=== PATIENT | female | born 1945 | race Caucasian/White ===

== ENCOUNTER 2022-03-13 20:16 | Observation (INO) ==
[2022-03-13] MEDS ORDERED: LORazepam 1 MG in SYRINGE 0.5 ML IV PRN (20:34)
[2022-03-13] MEDS ORDERED: HALOPERIDOL LACTATE 5 MG/ML 1 ML VIAL IM STA (20:34)
[2022-03-13] MEDS ORDERED: LORazepam 2 MG/1 ML VIAL ONE (20:40)
[2022-03-13] MEDS ORDERED: SODIUM CHLORIDE 0.9% 1000ML 1,000 ML IV SCH (20:45)
--- NOTE | 2022-03-13 20:51 | Emergency Department Note ---
Impression & Plan Altered mental status, Acute hyponatremia, Hypomagnesemia ED Provider Note NAME: MINO SHELDON AGE: 76 SEX: F : 1945 ARRIVES VIA: Ambulance INFORMANT: Patient, ED PROVIDER(S): Benjie Garvey DO CHIEF COMPLAINT: Altered mental status HPI: The patient is a 76-year-old female who presented to the emergency department by ambulance with an alteration in her mental status. It is unclear exactly what prompted the call to 911. There is a friend who did present to the emergency department with the patient who did call 911 at the patient's request although it is unclear why she called at this time. She states that the patient went to stand up and walk and stated that she could not walk and told the friend to call 911. At this time the patient offers no complaints but she is very combative and is guarded. She does not want to talk to me and keeps telling me to leave her alone and get her a drink of water. It is unclear what kind of history the patient has. She will not comply with history or physical exam at this time. History and physical exam are severely limited due to the patient's combative behavior. There was no reported trauma. There is no reported drug use but the patient reportedly did have an alcoholic beverage this evening. It is unclear how much alcohol she drank. ROS: See above HPI for pertinent positives & negatives. A total of 10 systems reviewed and were otherwise negative. PAST MEDICAL HISTORY: See Below PAST SURGICAL HISTORY: See Below FAMILY HISTORY: See Below SOCIAL HISTORY: See Below HOME MEDICATIONS: See Below ALLERGIES: See Below VITALS: See Below PHYSICAL EXAMINATION: GENERAL: The patient is awake and alert. She is very anxious and combative. EYES: The conjunctivae are clear. The pupils are round and reactive. EARS, NOSE, MOUTH AND THROAT: The nose is without any evidence of any deformity. NECK: The neck is nontender and supple. RESPIRATORY: Normal respiratory effort is noted there is no evidence of wheezing rhonchi or rales CARDIOVASCULAR: Regular rate and rhythm noted there no murmurs rubs or gallops normal S1 normal S2. GASTROINTESTINAL: The abdomen is soft. Abdomen is nontender. MUSCULOSKELETAL/EXTREMITIES: There is no evidence of gross deformity full range of motion is noted in the hips and shoulders. SKIN: There is no obvious evidence of any rash. There are no petechiae, pallor or cyanosis noted. NEUROLOGIC: The patient is awake and alert. She would not answer questions so I cannot assess orientation at this time but she does relate that she is in the emergency department. She is moving all extremities well. MEDICAL DECISION MAKING: Patient is a 76-year-old female who presented to the emergency department by ambulance. The patient initially did not want to come to the hospital. I received a prehospital notification about this patient. The patient ultimately was brought to the emergency department but she was very combative. She was not able to give a good history. She kept wanting to drink water and ultimately was found to have some degree of hyponatremia. It is possible that this is part of the reason why the patient is altered in her mentation however the sodium level would not explain it alone. She has no meningismus. She had no focal neur ologic deficit but was confused at times. I discussed patient's laboratory and radiographic studies with her. She was treated with IV fluids in the emergency department. She did require chemical sedation for the patient's own safety as well as safety of the staff. I discussed her condition with the on-call [facility] hospitalist. They have agreed to evaluate the patient in the emergency department. The patient was also treated with IV magnesium replacement. Triage Nursing notes reviewed. Prior medical records reviewed Vital Signs: reviewed and remarkable for low blood pressure. Differential diagnosis: Infection, hypoglycemia, electrolyte abnormalities, overdose, toxicologic, cardiac sources, intracerebral event, neurologic, trauma, as well as other pathologies. ER treatment provided: See below Diagnostics interpreted by me: ECG: EKG was obtained in the emergency department. My interpretation is normal sinus rhythm at 97 bpm. There is no ectopy. There is no acute ST segment abnormalities noted. No previous tracing was available. Cardiac Monitoring: An order was placed for continuous cardiac monitoring. The monitor shows a rate of 82 bpm with sinus rhythm. Laboratory studies: As stated above and show below. Imaging studies: See below Consultation(s): I discussed this case with Dr. Robin ED COURSE: Procedures: none Critical Care: I have personally spent greater than 40 minutes of critical care time in the direct management of this patient. This includes bedside care, interpretation of diagnostic studies, and testing, discussion with consultants, patient, and family members, and other required patient management activities. This 40 minutes is in excess of all separately billable procedures. Past Med/Surg History Social History Feels Safe at Home: Declines to Answer Results & Data (ED) Vital Signs Vital Signs - 24 hr 03/13/22 20:34 03/13/22 20:55 03/13/22 21:26 Pulse Rate 80 Pulse Rate [Finger] 89 Pulse Rhythm [Finger] Regular Pulse Strength [Finger] Normal Respiratory Rate 16 16 Respiratory Effort / Characteristics Non-Labored Spontaneous Respiratory Depth Normal Blood Pressure 172/114 H Blood Pressure [Right Arm] 118/67 Blood Pressure Mean 133 Blood Pressure Mean [Right Arm] 84 Blood Pressure Position Lying Blood Pressure Position [Right Arm] Sitting Pulse Oximetry 98 98 96 Oxygen Delivery Method Room Air Room Air Sepsis Recent Fever Within 48 Hours No Sepsis New/Unexplained Change in Mental Status Yes Sepsis Action Taken by Nursing No Action Required 03/13/22 22:10 03/13/22 23:29 03/14/22 00:02 Pulse Rate Pulse Rate [Finger] 89 89 82 Pulse Rhythm [Finger] Regular Pulse Strength [Finger] Normal Respiratory Rate 16 14 13 Respiratory Effort / Characteristics Spontaneous Non-Labored Spontaneous Respiratory Depth Normal Blood Pressure Blood Pressure [Right Arm] 140/72 78/44 L Blood Pressure Mean Blood Pressure Mean [Right Arm] 94 55 Blood Pressure Position Blood Pressure Position [Right Arm] Sitting Lying Pulse Oximetry 92 93 93 Oxygen Delivery Method Room Air Room Air Room Air Sepsis Recent Fever Within 48 Hours Sepsis New/Unexplained Change in Mental Status Sepsis Action Taken by Half-Way Medications Current Medication List: was personally reviewed by me Laboratory Data Attestation: I reviewed the patient's lab results. Result diagrams: 03/13/22 20:51 03/13/22 20:51 Lab Results 03/13/22 03/13/22 03/13/22 Range/Units 20:51 20:51 20:51 WBC (4.8-10.8) K/uL RBC (4.2-5.4) M/uL Hgb (12.0-16.0) g/dL Hct (37-47) % MCV (80-100) fL MCH (25-34) pg MCHC (32-36) g/dL RDW Std Deviation (36.4-46.3) fL RDW Coeff of Candi (11.5-14.5) % Plt Count (130-400) K/uL MPV (7.4-10.4) fL Immature Gran % (Auto) % Neut % (Auto) % Lymph % (Auto) % Platte % (Auto) % Eos % (Auto) % Baso % (Auto) % Neut # (Auto) (1.4-6.5) K/uL Lymph # (Auto) (1.2-3.4) K/uL Platte # (Auto) (0.11-0.59) K/uL Eos # (Auto) (0-0.5) K/uL Baso # (Auto) (0-0.2) K/uL Immature Gran # (Auto) (0.00-0.02) K/uL PT 12.4 H (9.0-12.0) Seconds INR 1.2 H (0.9-1.1) APTT 38.2 H (21.0-31.0) Seconds PTT Ratio 1.4 VBG pH (7.36-7.41) VBG pCO2 (38-50) mmHg VBG pO2 mmHg VBG HCO3 mmol/L VBG O2 Saturation % VBG Base Excess mEq/L Sodium 127 L (136-145) mmol/L Potassium 4.3 (3.5-5.1) mmol/L Chloride 94 L (98-107) mmol/L Carbon Dioxide 21 (21-32) mmol/L Anion Gap 12 H (3-11) BUN 11 (6-23) mg/dl Creatinine 0.88 (0.6-1.2) mg/dl Est Cr Clr Drug Dosing Not Reportable Est GFR ( Amer) 75.0 ml/min Est GFR (Non-Af Amer) 64.7 ml/min BUN/Creatinine Ratio 12.5 (10-20) Glucose 125 H (70-99(Fasting)) mg/dl POC Glucose (70-99) mg/dl Osmolality (280-300) mOsm/kg Calcium 9.6 (8.5-10.1) mg/dl Magnesium 1.2 L (1.7-2.4) mg/dl Total Bilirubin 0.4 (0.2-1.0) mg/dl AST 27 (13-39) U/L ALT 19 (7-52) U/L Alkaline Phosphatase 71 (34-104) U/L Total Creatine Kinase 104 (26-192) U/L Troponin I High Sens 7.3 (0-14) pg/ml Total Protein 7.2 (6.0-8.3) gm/dl Albumin 4.5 (3.4-5.0) gm/dl Globulin 2.7 (2.5-4.0) gm/dl Albumin/Globulin Ratio 1.7 (0.9-2) Lipase 78 (11-82) U/L Salicylates < 3.0 L (3.0-30) mg/dl Acetaminophen < 3 L (10-30) ug/ml Ethyl Alcohol mg/dL (<10.0) mg/dl SARS-CoV-2, RNA, NAAT (NEGATIVE) 03/13/22 03/13/22 03/13/22 Range/Units 20:51 20:51 20:51 WBC 11.67 H (4.8-10.8) K/uL RBC 3.33 L (4.2-5.4) M/uL Hgb 11.6 L (12.0-16.0) g/dL Hct 33.8 L (37-47) % MCV 101.5 H (80-100) fL MCH 34.8 H (25-34) pg MCHC 34.3 (32-36) g/dL RDW Std Deviation 43.9 (36.4-46.3) fL RDW Coeff of Candi 11.9 (11.5-14.5) % Plt Count 350 (130-400) K/uL MPV 9.8 (7.4-10.4) fL Immature Gran % (Auto) 0.2 % Neut % (Auto) 64.5 % Lymph % (Auto) 24.8 % Platte % (Auto) 9.8 % Eos % (Auto) 0.3 % Baso % (Auto) 0.4 % Neut # (Auto) 7.53 H (1.4-6.5) K/uL Lymph # (Auto) 2.89 (1.2-3.4) K/uL Platte # (Auto) 1.14 H (0.11-0.59) K/uL Eos # (Auto) 0.04 (0-0.5) K/uL Baso # (Auto) 0.05 (0-0.2) K/uL Immature Gran # (Auto) 0.02 (0.00-0.02) K/uL PT (9.0-12.0) Seconds INR (0.9-1.1) APTT (21.0-31.0) Seconds PTT Ratio VBG pH (7.36-7.41) VBG pCO2 (38-50) mmHg VBG pO2 mmHg VBG HCO3 mmol/L VBG O2 Saturation % VBG Base Excess mEq/L Sodium (136-145) mmol/L Potassium (3.5-5.1) mmol/L Chloride (98-107) mmol/L Carbon Dioxide (21-32) mmol/L Anion Gap (3-11) BUN (6-23) mg/dl Creatinine (0.6-1.2) mg/dl Est Cr Clr Drug Dosing Est GFR ( Amer) ml/min Est GFR (Non-Af Amer) ml/min BUN/Creatinine Ratio (10-20) Glucose (70-99(Fasting)) mg/dl POC Glucose (70-99) mg/dl Osmolality 286 (280-300) mOsm/kg Calcium (8.5-10.1) mg/dl Magnesium (1.7-2.4) mg/dl Total Bilirubin (0.2-1.0) mg/dl AST (13-39) U/L ALT (7-52) U/L Alkaline Phosphatase (34-104) U/L Total Creatine Kinase (26-192) U/L Troponin I High Sens (0-14) pg/ml Total Protein (6.0-8.3) gm/dl Albumin (3.4-5.0) gm/dl Globulin (2.5-4.0) gm/dl Albumin/Globulin Ratio (0.9-2) Lipase (11-82) U/L Salicylates (3.0-30) mg/dl Acetaminophen (10-30) ug/ml Ethyl Alcohol mg/dL 63.7 H (<10.0) mg/dl SARS-CoV-2, RNA, NAAT (NEGATIVE) 03/13/22 03/13/22 03/13/22 Range/Units 20:51 21:03 21:22 WBC (4.8-10.8) K/uL RBC (4.2-5.4) M/uL Hgb (12.0-16.0) g/dL Hct (37-47) % MCV (80-100) fL MCH (25-34) pg MCHC (32-36) g/dL RDW Std Deviation (36.4-46.3) fL RDW Coeff of Candi (11.5-14.5) % Plt Count (130-400) K/uL MPV (7.4-10.4) fL Immature Gran % (Auto) % Neut % (Auto) % Lymph % (Auto) % Platte % (Auto) % Eos % (Auto) % Baso % (Auto) % Neut # (Auto) (1.4-6.5) K/uL Lymph # (Auto) (1.2-3.4) K/uL Platte # (Auto) (0.11-0.59) K/uL Eos # (Auto) (0-0.5) K/uL Baso # (Auto) (0-0.2) K/uL Immature Gran # (Auto) (0.00-0.02) K/uL PT (9.0-12.0) Seconds INR (0.9-1.1) APTT (21.0-31.0) Seconds PTT Ratio VBG pH 7.35 L (7.36-7.41) VBG pCO2 43 (38-50) mmHg VBG pO2 33 mmHg VBG HCO3 24 mmol/L VBG O2 Saturation < 60.0 % VBG Base Excess -2.0 mEq/L Sodium (136-145) mmol/L Potassium (3.5-5.1) mmol/L Chloride (98-107) mmol/L Carbon Dioxide (21-32) mmol/L Anion Gap (3-11) BUN (6-23) mg/dl Creatinine (0.6-1.2) mg/dl Est Cr Clr Drug Dosing Est GFR ( Amer) ml/min Est GFR (Non-Af Amer) ml/min BUN/Creatinine Ratio (10-20) Glucose (70-99(Fasting)) mg/dl POC Glucose 124 H (70-99) mg/dl Osmolality (280-300) mOsm/kg Calcium (8.5-10.1) mg/dl Magnesium (1.7-2.4) mg/dl Total Bilirubin (0.2-1.0) mg/dl AST (13-39) U/L ALT (7-52) U/L Alkaline Phosphatase (34-104) U/L Total Creatine Kinase (26-192) U/L Troponin I High Sens (0-14) pg/ml Total Protein (6.0-8.3) gm/dl Albumin (3.4-5.0) gm/dl Globulin (2.5-4.0) gm/dl Albumin/Globulin Ratio (0.9-2) Lipase (11-82) U/L Salicylates (3.0-30) mg/dl Acetaminophen (10-30) ug/ml Ethyl Alcohol mg/dL (<10.0) mg/dl SARS-CoV-2, RNA, NAAT NEGATIVE (NEGATIVE) Administered Medications Sodium Chloride (Nss 1000ml) 1,000 mls @ 999 mls/hr IV .Q1H1M ONE Stop: 03/14/22 01:08 Last Admin: 03/14/22 00:09 Dose: 999 mls/hr Documented by: [id number] Discontinued Medications Haloperidol Lactate (Haloperidol Lactate 5 Mg/Ml 1 Ml Vial) 5 mg IM NOW STA Stop: 03/13/22 20:35 Last Admin: 03/13/22 20:50 Dose: 5 mg Documented by: [id number] Sodium Chloride (Nss 1000ml) 1,000 mls @ 999 mls/hr IV .Q1H1M MILDRED Stop: 03/13/22 21:45 Last Infusion: 03/13/22 23:05 Dose: 0 mls/hr Documented by: [id number] Admin: 03/13/22 21:32 Dose: 999 mls/hr Documented by: [id number] Magnesium Sulfate/Dextrose (Magnesium Sulfate / D5w) 1 gm in 100 mls @ 100 mls/hr IV Q1H MILDRED Stop: 03/13/22 23:37 Last Infusion: 03/14/22 00:09 Dose: 0 mls/hr Documented by: [id number] Admin: 03/13/22 23:04 Dose: 100 mls/hr Documented by: [id number] Infusion: 03/13/22 23:03 Dose: 0 mls/hr Documented by: [id number] Admin: 03/13/22 21:53 Dose: 100 mls/hr Documented by: [id number] Lorazepam (Lorazepam 2 Mg/1 Ml Vial) Confirm Administered Dose 1 mg .ROUTE .STK- MED ONE Stop: 03/13/22 20:41 Last Admin: 03/13/22 20:50 Dose: 1 mg Documented by: [id number] Imaging Data Radiologist's Impression: Chest X-Ray 03/13/22 20:34 XR chest 1V portable HISTORY: 76 years-old Female AMS acutely altered mental status COMPARISON: None TECHNIQUE: Portable AP view of the chest FINDINGS: Cardiac silhouette is mildly enlarged. No pneumothorax, pleural effusion, airspace consolidation or overt pulmonary edema. Sigmoidal thoracolumbar scoli osis. The bones appear grossly intact. IMPRESSION: No acute process. ACT 112: Negative or not required by law. The above report was generated using voice recognition software. It may contain grammatical, syntax or spelling errors. Electronically signed by: Adal Quiroga M.D. 03/13/2022 9:[address] 03/13/22 20:35 CT head/brain wo con CLINICAL HISTORY: 76 years-old Female with AMS. Acutely altered mental status TECHNIQUE: Multiple axial CT images of the head were obtained without contrast. A dose lowering technique was utilized adhering to the principles of ALARA. CT DOSE: 1228.53 mGy.cm COMPARISON: None. FINDINGS: No acute intracranial hemorrhage, midline shift, intracranial mass, hydrocephalus, territorial ischemia or abnormal extra-axial collection. White matter hypodensities are suggestive of chronic microvascular ischemic disease. Calcifications of the falx cerebri. Study is limited secondary to positioning and mild motion artifact. The calvarium is intact. The paranasal sinuses, mastoid air cells, and middle ear cavities are clear. IMPRESSION: No acute intracranial abnormality. ACT 112: Negative or not required by law. The above report was generated using voice recognition software. It may contain grammatical, syntax or spelling errors. Electronically signed by: Adal Quiroga M.D. 03/13/2022 9:50 PM Discharge Plan Visit Data Chief Complaint: Altered Mental Status Stated Complaint: ALTERED MENTAL STATUS ED Provider: Benjie Garvey Discharge Problem: Altered mental status, Acute hyponatremia, Hypomagnesemia Patient Disposition: Being Evaluated by Hospitalist Forms Stand Alone Forms: [facility] Referrals Referrals: PCP,NO [Primary Care Provider] -
[2022-03-13 21:03] LABS: HCO3 VBG 24 mmol/L; Oxygen Saturation VBG < 60.0 %; PCO2 VBG 43 mmHg (38-50); PO2 VBG 33 mmHg; pH VBG 7.35 (7.36-7.41)
[2022-03-13 21:10] LABS: Basophils # (auto) 0.05 K/uL (0-0.2); Basophils % (auto) 0.4 %; Eosinophils # (auto) 0.04 K/uL (0-0.5); Eosinophils % (auto) 0.3 %; Hematocrit (blood only) 33.8 % (37-47); Hemoglobin 11.6 g/dL (12.0-16.0); Immature Granulocytes # (auto) 0.02 K/uL (0.00-0.02); Immature Granulocytes % (auto) 0.2 %; Lymphocytes # (auto) 2.89 K/uL (1.2-3.4); Lymphocytes % (auto) 24.8 %; Mean Corpuscular Hemoglobin 34.8 pg (25-34); Mean Corpuscular Hgb Conc 34.3 g/dL (32-36); Mean Corpuscular Volume 101.5 fL (80-100); Mean Platelet Volume 9.8 fL (7.4-10.4); Monocytes # (auto) 1.14 K/uL (0.11-0.59); Monocytes % (auto) 9.8 %; Neutrophils # (auto) 7.53 K/uL (1.4-6.5); Neutrophils % (auto) 64.5 %; Platelet Count 350 K/uL (130-400); RDW Coefficient of Variation 11.9 % (11.5-14.5); RDW Standard Deviation 43.9 fL (36.4-46.3); Red Blood Count 3.33 M/uL (4.2-5.4); White Blood Count 11.67 K/uL (4.8-10.8)
[2022-03-13 21:18] LABS: INR 1.2 (0.9-1.1); Partial Thromboplastin Ratio 1.4; Partial Thromboplastin Time 38.2 Seconds (21.0-31.0); Prothrombin Time 12.4 Seconds (9.0-12.0)
[2022-03-13 21:23] LABS: Acetaminophen < 3 ug/ml (10-30); Salicylate < 3.0 mg/dl (3.0-30)
[2022-03-13 21:29] LABS: Alanine Aminotransferase 19 U/L (7-52); Albumin Globulin Ratio 1.7 (0.9-2); Albumin Level 4.5 gm/dl (3.4-5.0); Alkaline Phosphatase 71 U/L (34-104); Anion Gap 12 (3-11); Aspartate Aminotransferase 27 U/L (13-39); BUN Creatinine Ratio 12.5 (10-20); Bilirubin,Total 0.4 mg/dl (0.2-1.0); Blood Urea Nitrogen 11 mg/dl (6-23); Calcium 9.6 mg/dl (8.5-10.1); Carbon Dioxide 21 mmol/L (21-32); Chloride 94 mmol/L (98-107); Creatine Kinase 104 U/L (26-192); Est GFR (Non-African American) 64.7 ml/min; Globulin 2.7 gm/dl (2.5-4.0); Glucose 125 mg/dl (70-99(Fasting)); Lipase 78 U/L (11-82); Magnesium 1.2 mg/dl (1.7-2.4); Potassium 4.3 mmol/L (3.5-5.1); Sodium 127 mmol/L (136-145); Total Protein 7.2 gm/dl (6.0-8.3)
[2022-03-13 21:30] LABS: Troponin I High Sensitivity 7.3 pg/ml (0-14)
--- NOTE | 2022-03-13 21:39 | XRay Report ---
XR chest 1V portable HISTORY: 76 years-old Female AMS acutely altered mental status COMPARISON: None TECHNIQUE: Portable AP view of the chest FINDINGS: Cardiac silhouette is mildly enlarged. No pneumothorax, pleural effusion, airspace consolidation or o vert pulmonary edema. Sigmoidal thoracolumbar scoliosis. The bones appear grossly intact. IMPRESSION: No acute process. ACT 112: Negative or not required by law. The above report was generated using voice recognition software. It may contain grammatical, syntax o r spelling errors. Electronically signed by: Adal Quiroga M.D. 03/13/2022 9:38 PM
--- NOTE | 2022-03-13 21:51 | CT Scan Report ---
CT head/brain wo con CLINICAL HISTORY: 76 years-old Female with AMS. Acutely altered mental status TECHNIQUE: Multiple axial CT images of the head were obtained without contrast. A dose lowering tech nique was utilized adhering to the principles of ALARA. CT DOSE: 1228.53 mGy.cm COMPARISON: None. FINDINGS: No acute intracranial hemorrhage, midline shift, intracranial mass, hydrocephalus, territorial ischem ia or abnormal extra-axial collection. White matter hypodensities are suggestive of chronic microvasc ular ischemic disease. Calcifications of the falx cerebri. Study is limited secondary to positioning and mild motion artifact. The calvarium is intact. The paranasal sinuses, mastoid air cells, and middle ear cavities are clear . IMPRESSION: No acute intracranial abnormality. ACT 112: Negative or not required by law. The above report was generated using voice recognition software. It may contain grammatical, syntax o r spelling errors. Electronically signed by: Adal Quiroga M.D. 03/13/2022 9:50 PM
[2022-03-13] MEDS: MAGNESIUM SULFATE / D5W 1 GM/100 ML BAG IV SCH ×2 (21:53→23:04)
[2022-03-14] MEDS ORDERED: SODIUM CHLORIDE 0.9% 1000ML 1,000 ML IV ONE (00:08)
[2022-03-14] MEDS ORDERED: THIAMINE HCL 100 MG in SYRINGE 9 ML IV STA (00:34)
[2022-03-14] MEDS ORDERED: MAGNESIUM SULFATE / D5W 1 GM/100 ML BAG IV ONE (00:34)
--- NOTE | 2022-03-14 01:22 | History & Physical Report ---
Date of Service March 14, 2022 Assessment & Plan (1) Acute hyponatremia: Plan: Possible alcohol abuse hx atrial flutter, patient NSR, on Eliquis hypertension, slightly elevated hx TIA New onset anemia, rule out GI bleed given NOAC use, patient refusing rectal exam Hyperglycemia rule out DM Medical telemetry Careful correction of sodium Hyponatremia work-up AIXA S, DT precautions May need nephrology consultation Obtain additional history from patient when more awake Anemia work-up, transfuse PRBC if hemoglobin less than 8 and or for symptomatic anemia Hold NOAC for now until GI bleed ruled out Check urine tox Check hemoglobin A1c DVT prophylaxis. SCDs until occult GI bleed ruled out Full code Patient requesting updates from providers. Mr. Rahul Spiceriott, contact #[phone]. Text document was generated using [employer] voice recognition software. It may contain grammatical or spelling errors. Kindly contact undersigned for clarification of any documentation item in question. History of Present Illness Chief Complaint: Confusion as per records Primary Care Provider: Dr. Bethany Munoz History obtained from patient, family, and records. Limited history from patient secondary to obtunded state. Medical history significant for atrial flutter, hypertension, TIA, possible alcohol abuse, possible BRITTNY as per records, past tobacco abuse. Patient was at a green party with a friend visiting out of state when patient was noted to be confused and staring off into the distance. Patient had 2 beers and some marijuana as per friend account. As per patient (currently in [place]) patient currently overwhelmed by issues with her computer and politics. Can drink alcohol heavily from time to time. Patient noted to be agitated upon arrival at the ER. Lorazepam and Haldol administered. Patient currently obtunded. Medical History as above Surgical History : DL, neck surgery, tonsillectomy/adenoidectomy Family History : Heart disease, lung cancer, stroke Personal/Social history : Past tobacco abuse, alcohol intake occasionally heavy as per Allergies Allergy/AdvReac Type Severity Reaction Status Date / Time Unable to Assess Allergy Verified 03/14/22 01:30 Home Medications Medication Instructions Recorded Confirmed Type atenolol 100 mg tablet 100 mg PO DAILY 03/14/22 03/14/22 History atorvastatin 40 mg tablet 40 mg PO DAILY 03/14/22 03/14/22 History lisinopril 20 mg tablet 20 mg PO DAILY 03/14/22 03/14/22 History rivaroxaban 20 mg tablet (Xarelto) 20 mg PO DAILY 03/14/22 03/14/22 History spironolactone 25 mg tablet 25 mg PO DAILY 03/14/22 03/14/22 History Past Med/Surg History Social History Preferred Language: Burmese Communication Ability: Impaired Warm In Worker Required: No Current Living Situation Comment: unknown Feels Safe at Home: Declines to Answer Review of Systems Review of Systems: Could not be reliably obtained secondary to obtunded state Physical Exam Physical Exam: GENERAL: Obtunded , no respiratory distress SKIN: Normal color, warm HEENT: Bespectacled, [place] palpebral conjunctivae, no ptosis, dry buccal mucosa NECK : Supple, no tenderness CHEST : CTA, no tenderness HEART : RRR, no obvious murmurs ABDOMEN: Some distention, nontender RECTAL : Refused EXTREMITIES : No LE swelling/tenderness, no other conspicuous deformities noted NEUROLOGIC : Obtunded, no facial asymmetry, no other gross focality Results & Data Results & Data ([facility]) Vital Signs (Past 12 Hours) Vital Signs Pulse Pulse Resp BP BP Pulse Ox 03/14/22 01:04 78 12 97/54 L 95 03/14/22 00:30 87 103/62 93 03/14/22 00:02 82 13 78/44 L 93 03/13/22 23:29 89 14 93 03/13/22 22:10 89 16 140/72 92 03/13/22 21:26 89 16 118/67 96 03/13/22 20:55 98 03/13/22 20:34 80 16 172/114 H 98 Laboratory Results Laboratory Results WBC 11.67 K/uL (4.8-10.8) H 03/13/22 20:51 RBC 3.33 M/uL (4.2-5.4) L 03/13/22 20:51 Hgb 11.6 g/dL (12.0-16.0) L 03/13/22 20:51 Hct 33.8 % (37-47) L 03/13/22 20:51 MCV 101.5 fL (80-100) H 03/13/22 20:51 MCH 34.8 pg (25-34) H 03/13/22 20:51 MCHC 34.3 g/dL (32-36) 03/13/22 20: RDW Std Deviation 43.9 fL (36.4-46.3) 03/13/22 20: RDW Coeff of Candi 11.9 % (11.5-14.5) 03/13/22 20: Plt Count 350 K/uL (130-400) 03/13/22 20: MPV 9.8 fL (7.4-10.4) 03/13/22 20:51 Immature Gran % (Auto) 0.2 % 03/13/22 20:51 Neut % (Auto) 64.5 % 03/13/22 20:51 Lymph % (Auto) 24.8 % 03/13/22 20: [place] % (Auto) 9.8 % 03/13/22 20: Eos % (Auto) 0.3 % 03/13/22 20: Baso % (Auto) 0.4 % 03/13/22: Neut # (Auto) 7.53 K/uL (1.4-6.5) H 03/13/22 20:51 Lymph # (Auto) 2.89 K/uL (1.2-3.4) 03/13/22 20: [place] # (Auto) 1.14 K/uL (0.11-0.59) H 03/13/22 20:51 Eos # (Auto) 0.04 K/uL (0-0.5) 03/13/22 20: Baso # (Auto) 0.05 K/uL (0-0.2) 03/13/22 20: Immature Gran # (Auto) 0.02 K/uL (0.00-0.02) 03/13/22 20: PT 12.4 Seconds (9.0-12.0) H 03/13/22 20:51 INR 1.2 (0.9-1.1) H 03/13/22 20:51 APTT 38.2 Seconds (21.0-31.0) H 03/13/22 20:51 PTT Ratio 1.4 03/13/22 20: VBG pH 7.35 (7.36-7.41) L 03/13/22 20:51 VBG pCO2 43 mmHg (38-50) 03/13/22 20:51 VBG pO2 33 mmHg 03/13/22 20:51 VBG HCO3 24 mmol/L 03/13/22 20:51 VBG O2 Saturation < 60.0 % 03/13/22 20:51 VBG Base Excess -2.0 mEq/L 03/13/22 20:51 Sodium 127 mmol/L (136-145) L 03/13/22 20:51 Potassium 4.3 mmol/L (3.5-5.1) 03/13/22 20:51 Chloride 94 mmol/L (98-107) L 03/13/22 20:51 Carbon Dioxide 21 mmol/L (21-32) 03/13/22 20:51 Anion Gap 12 (3-11) H 03/13/22 20:51 BUN 11 mg/dl (6-23) 03/13/22 20:51 Creatinine 0.88 mg/dl (0.6-1.2) 03/13/22 20:51 Est Cr Clr Drug Dosing Not Reportable 03/13/22 20:51 Est GFR ( Amer) 75.0 ml/min 03/13/22 20:51 Est GFR (Non-Af Amer) 64.7 ml/min 03/13/22 20:51 BUN/Creatinine Ratio 12.5 (10-20) 03/13/22 20:51 Glucose 125 mg/dl (70-99(Fasting)) H 03/13/22 20:51 POC Glucose 124 mg/dl (70-99) H 03/13/22 21:03 Osmolality 286 mOsm/kg (280-300) 03/13/22 20:51 Calcium 9.6 mg/dl (8.5-10.1) 03/13/22 20:51 Magnesium 1.2 mg/dl (1.7-2.4) L 03/13/22 20:51 Total Bilirubin 0.4 mg/dl (0.2-1.0) 03/13/22 20:51 AST 27 U/L (13-39) 03/13/22 20:51 ALT 19 U/L (7-52) 03/13/22 20:51 Alkaline Phosphatase 71 U/L (34-104) 03/13/22 20:51 Total Creatine Kinase 104 U/L (26-192) 03/13/22 20:51 Troponin I High Sens 7.3 pg/ml (0-14) 03/13/22 20:51 Total Protein 7.2 gm/dl (6.0-8.3) 03/13/22 20:51 Albumin 4.5 gm/dl (3.4-5.0) 03/13/22 20:51 Globulin 2.7 gm/dl (2.5-4.0) 03/13/22 20:51 Albumin/Globulin Ratio 1.7 (0.9-2) 03/13/22 20:51 Lipase 78 U/L (11-82) 03/13/22 20:51 Salicylates < 3.0 mg/dl (3.0-30) L 03/13/22 20:51 Acetaminophen < 3 ug/ml (10-30) L 03/13/22 20:51 Ethyl Alcohol mg/dL 63.7 mg/dl (<10.0) H 03/13/22 20:51 SARS-CoV-2, RNA, NAAT NEGATIVE (NEGATIVE) 03/13/22 21:22 Impressions Chest X-Ray 03/13/22 20:34 XR chest 1V portable HISTORY: 76 years-old Female AMS acutely altered mental status COMPARISON: None TECHNIQUE: Portable AP view of the chest FINDINGS: Cardiac silhouette is mildly enlarged. No pneumothorax, pleural effusion, airspace consolidation or overt pulmonary edema. Sigmoidal thoracolumbar scoliosis. The bones appear grossly intact. IMPRESSION: No acute process. ACT 112: Negative or not required by law. The above report was generated using voice recognition software. It may contain grammatical, syntax or spelling errors. Electronically signed by: Adal Quiroga M.D. 03/13/2022 9:[address] 03/13/22 20:35 CT head/brain wo con CLINICAL HISTORY: 76 years-old Female with AMS. Acutely altered mental status TECHNIQUE: Multiple axial CT images of the head were obtained without contrast. A dose lowering technique was utilized adhering to the principles of ALARA. CT DOSE: 1228.53 mGy.cm COMPARISON: None. FINDINGS: No acute intracranial hemorrhage, midline shift, intracranial mass, hydrocephalus, territorial ischemia or abnormal extra-axial collection. White matter hypodensities are suggestive of chronic microvascular ischemic disease. Calcifications of the falx cerebri. Study is limited secondary to positioning and mild motion artifact. The calvarium is intact. The paranasal sinuses, mastoid air cells, and middle ear cavities are clear. IMPRESSION: No acute intracranial abnormality. ACT 112: Negative or not required by law. The above report was generated using voice recognition software. It may contain grammatical, syntax or spelling errors. Electronically signed by: Adal Quiroga M.D. 03/13/2022 9:50 PM Diagnostic Findings EKG as per my interpretation: Rate 95, NSR, normal axis, no ischemia, low voltage
[2022-03-14] MEDS ORDERED: ACETAMINOPHEN 325 MG TAB PO PRN (02:21)
[2022-03-14] MEDS ORDERED: LORazepam 2 MG in SYRINGE 1 ML IV PRN (02:31)
[2022-03-14] MEDS ORDERED: LORazepam 1 MG in SYRINGE 0.5 ML IV PRN (02:31)
[2022-03-14] MEDS ORDERED: LORazepam 3 MG in SYRINGE 1.5 ML IV PRN (02:31)
[2022-03-14] MEDS ORDERED: ATIVAN IV ALCOHOL WITHDRAWL IV PRN (02:31)
[2022-03-14 03:13] LABS: Reticulocyte % 0.8 % (0.5-2.0); Reticulocytes # 0.02 10^6/uL (0.02-0.10)
[2022-03-14 04:38] LABS: Ferritin 147.1 ng/ml (8-388)
[2022-03-14 05:37] LABS: Basophils # (auto) 0.03 K/uL (0-0.2); Basophils % (auto) 0.3 %; Eosinophils # (auto) 0.03 K/uL (0-0.5); Eosinophils % (auto) 0.3 %; Hematocrit (blood only) 30.3 % (37-47); Hemoglobin 10.6 g/dL (12.0-16.0); Immature Granulocytes # (auto) 0.02 K/uL (0.00-0.02); Immature Granulocytes % (auto) 0.2 %; Lymphocytes # (auto) 3.21 K/uL (1.2-3.4); Mean Corpuscular Hemoglobin 35.8 pg (25-34); Mean Corpuscular Volume 102.4 fL (80-100); Mean Platelet Volume 9.7 fL (7.4-10.4); Monocytes # (auto) 1.21 K/uL (0.11-0.59); Monocytes % (auto) 12.8 %; Neutrophils # (auto) 4.94 K/uL (1.4-6.5); Neutrophils % (auto) 52.4 %; Platelet Count 314 K/uL (130-400); RDW Coefficient of Variation 11.5 % (11.5-14.5); RDW Standard Deviation 43.4 fL (36.4-46.3); Red Blood Count 2.96 M/uL (4.2-5.4); White Blood Count 9.44 K/uL (4.8-10.8)
[2022-03-14 06:26] LABS: Carbon Dioxide 24 mmol/L (21-32); Chloride 102 mmol/L (98-107); Sodium 129 mmol/L (136-145)
[2022-03-14 06:27] LABS: Anion Gap 3 (3-11); BUN Creatinine Ratio 12.5 (10-20); Blood Urea Nitrogen 9 mg/dl (6-23); Calcium 8.4 mg/dl (8.5-10.1); Est GFR (African American) 95.6 ml/min; Est GFR (Non-African American) 82.5 ml/min; Glucose 100 mg/dl (70-99(Fasting)); Magnesium 2.5 mg/dl (1.7-2.4)
[2022-03-14] MEDS ORDERED: lisinopril 20 MG TAB PO SCH (09:00)
[2022-03-14] MEDS ORDERED: ATORVASTATIN 40 MG TAB PO SCH (09:00)
[2022-03-14] MEDS ORDERED: FOLIC ACID 1 MG TAB PO SCH (09:00)
[2022-03-14] MEDS ORDERED: MULTIVITAMIN TAB PO SCH (09:00)
[2022-03-14] MEDS ORDERED: ATENOLOL 50 MG TABLET PO SCH (09:00)
[2022-03-14 13:20] LABS: Anion Gap 5 (3-11); BUN Creatinine Ratio 10.1 (10-20); Blood Urea Nitrogen 8 mg/dl (6-23); Calcium 8.9 mg/dl (8.5-10.1); Carbon Dioxide 25 mmol/L (21-32); Chloride 101 mmol/L (98-107); Est GFR (African American) 85.5 ml/min; Est GFR (Non-African American) 73.7 ml/min; Glucose 148 mg/dl (70-99(Fasting)); Potassium 4.1 mmol/L (3.5-5.1); Sodium 131 mmol/L (136-145)
--- NOTE | 2022-03-14 18:27 | Hospitalist Progress Note ---
Date of Service March 14, 2022 Assessment & Plan (1) Acute hyponatremia: Plan: ALTERED MENTAL STATUS LIKELY SECONDARY TO ALCOHOL INTOXICATION, MARIJUANA Patient now awake, alert, oriented x3 Reports that she is back to her baseline Answers all questions appropriately CT head: No acute process Sodium level improved from 27- 31 Patient would like to be discharged home and follow-up with her PCP Coordinated with psychiatry service, inpatient psychiatry treatment not indicated at this time, 302 petition will be removed Patient advised against alcohol use, substance use and she verbalized understanding and agreement Advised to follow-up with primary care physician within this week for reevaluation and repeat sodium and magnesium levels Patient gave me permission to speak with her and share medical information with him as well as her primary care physician Dr. Bethany Harrison's. MILD ANEMIA SECONDARY TO FOLIC ACID DEFICIENCY Hemoglobin 11 Folate acid supplement ordered Repeat CBC and folate acid level as an outpatient HYPOMAGNESEMIA LIKELY SECONDARY TO ALCOHOL USE presented with magnesium of 1.4 Given IV magnesium Magnesium improved to 2.5 P.o. magnesium prescribed for the patient Follow-up as an outpatient with PCP hx atrial flutter, patient NSR, on Eliquis hypertension, resume usual medications hx TIA New onset anemia, rule out GI bleed given NOAC use, patient refusing rectal exam Hyperglycemia rule out DM -- A1c pending plan of care discussed with patient in detail and at length all questions answered She is understanding, agreeable, comfortable with the plan of care Admission and Anticipated Discharge Date Admission Date: March 14, 2022 Subjective Follow-up for altered mental status, etc. Seen resting in bed, sleeping but easily awakened Oriented x3, answers all questions appropriately Patient somewhat irritable States she feels fine Denies headache, dizziness, chest pain, shortness of breath, cough, palpitations, abdominal pain, nausea or vomiting, problems with urination or bowel movement Patient reports that she was in a friend's house, admits to have been drinking alcohol, and also friends made her smoke "something" Afterwards, she did not feel right, and wanted to be driven home but her friends did not want to do that apparently 911 was then called and patient brought to the ER Patient denies any symptoms States she feels back to her baseline Would like to be discharged today Review of Systems Review of Systems: all noted and negative except for above Physical Exam Physical Exam: General- oriented x 3, not in distress, speaks in sentences with no effort or accessory muscle use Head- atraumatic Eyes- PERRL, EOMI, anicteric ENT- oropharynx clear Neck- supple, no JVD, no adenopathy, no thyromegaly; carotids +2/2, no bruits appreciated Lungs- clear to auscultation bilaterally, no rales/wheezes Heart- normal rate, regular rhythm; no murmur, no gallop, no rub appreciated Abdomen- normal bowel sounds, nondistended, soft, nontender, no masses or hepatosplenomegaly Extremities- no pretibial edema, no calf tenderness; peripheral pulses intact Neuro- alert, oriented x 3; CN 2-12 grossly intact; motor 5/5 bilaterally;sensation 100% on all extremities; no other gross focal neurologic deficits Skin- warm & dry Psych- calm, cooperative Results & Data Results & Data ([facility]) Vital Signs (Past 12 Hours) Vital Signs Pulse Resp BP Pulse Ox 03/14/22 09:01 69 16 132/71 98 03/14/22 08:00 69 16 164/77 H 100 03/14/22 07:16 77 18 140/75 98 all noted and reviewed including below
--- NOTE | 2022-03-14 18:27 | Discharge Summary ---
Date of Service March 14, 2022 Admission HPI Per Admitting Provider History obtained from patient, family, and records. Limited history from patient secondary to obtunded state. Medical history significant for atrial flutter, hypertension, TIA, possible alcohol abuse, possible BRITTNY as per records, past tobacco abuse. Patient was at a democrat with a friend visiting out of state when patient was noted to be confused and staring off into the distance. Patient had 2 beers and some marijuana as per friend account. As per patient (currently in [place]) patient currently overwhelmed by issues with her computer and politics. Can drink alcohol heavily from time to time. Patient noted to be agitated upon arrival at the ER. Lorazepam and Haldol administered. Patient currently obtunded. Medical History as above Surgical History : DL, neck surgery, tonsillectomy/adenoidectomy Family History : Heart disease, lung cancer, stroke Personal/Social history : Past tobacco abuse, alcohol intake occasionally heavy as per Admission Exam Per Admitting Provider GENERAL: Obtunded , no respiratory distress SKIN: Normal color, warm HEENT: Bespectacled, [place] palpebral conjunctivae, no ptosis, dry buccal mucosa NECK : Supple, no tenderness CHEST : CTA, no tenderness HEART : RRR, no obvious murmurs ABDOMEN: Some distention, nontender RECTAL : Refused EXTREMITIES : No LE swelling/tenderness, no other conspicuous deformities noted NEUROLOGIC : Obtunded, no facial asymmetry, no other gross focality Principal Diagnosis Altered mental status likely secondary to alcohol intoxication, marijuana Hyponatremia Discharge Exam General- oriented x 3, not in distress, speaks in sentences with no effort or accessory muscle use Head- atraumatic Eyes- PERRL, EOMI, anicteric ENT- oropharynx clear Neck- supple, no JVD, no adenopathy, no thyromegaly; carotids +2/2, no bruits appreciated Lungs- clear to auscultation bilaterally, no rales/wheezes Heart- normal rate, regular rhythm; no murmur, no gallop, no rub appreciated Abdomen- normal bowel sounds, nondistended, soft, nontender, no masses or hepatosplenomegaly Extremities- no pretibial edema, no calf tenderness; peripheral pulses intact Neuro- alert, oriented x 3; CN 2-12 grossly intact; motor 5/5 bilaterally;sensation 100% on all extremities; no other gross focal neurologic deficits Skin- warm & dry Psych- calm, cooperative Discharge Data Allergies Allergy/AdvReac Type Severity Reaction Status Date / Time Unable to Assess Allergy Verified 03/14/22 01:30 Consultations 03/14/22 00:08 ED Decision to Admit Stat 03/14/22 15:45 Consult Psychiatry Routine Ordered Studies 03/13/22 20:35 CT head/brain wo con Stat CT head/brain wo con CLINICAL HISTORY: 76 years-old Female with AMS. Acutely altered mental status TECHNIQUE: Multiple axial CT images of the head were obtained without contrast. A dose lowering technique was utilized adhering to the principles of ALARA. CT DOSE: 1228.53 mGy.cm COMPARISON: None. FINDINGS: No acute intracranial hemorrhage, midline shift, intracranial mass, hydrocephalus, territorial ischemia or abnormal extra-axial collection. White matter hypodensities are suggestive of chronic microvascular ischemic disease. Calcifications of the falx cerebri. Study is limited secondary to positioning and mild motion artifact. The calvarium is intact. The paranasal sinuses, mastoid air cells, and middle ear cavities are clear. IMPRESSION: No acute intracranial abnormality. ACT 112: Negative or not required by law. The above report was generated using voice recognition software. It may contain grammatical, syntax or spelling errors. Electronically signed by: Adal Quiroga M.D. 03/13/2022 9:50 PM Hospital Course (1) Acute hyponatremia: ALTERED MENTAL STATUS LIKELY SECONDARY TO ALCOHOL INTOXICATION, MARIJUANA Patient now awake, alert, oriented x3 Reports that she is back to her baseline Answers all questions appropriately CT head: No acute process Sodium level improved from 10 15- 31 Patient would like to be discharged home and follow-up with her PCP Coordinated with psychiatry service, inpatient psychiatry treatment not indicated at this time, 302 petition will be removed Patient advised against alcohol use, substance use and she verbalized understanding and agreement Advised to follow-up with primary care physician within this week for reevaluation and repeat sodium and magnesium levels Patient gave me permission to speak with her and share medical information with him as well as her primary care physician Dr. Bethany Harrison's. HYPONATREMIA Patient reports that she has chronic hyponatremia but not familiar with the levels Admitted with sodium of 127, received IV NSS, slowly improved to 131 Cannot obtain outpatient records at this time Patient advised to follow-up with PCP this week for sodium level check MILD ANEMIA SECONDARY TO FOLIC ACID DEFICIENCY Hemoglobin 11 Folate acid supplement ordered Repeat CBC and folate acid level as an outpatient HYPOMAGNESEMIA LIKELY SECONDARY TO ALCOHOL USE presented with magnesium of 1.4 Given IV magnesium Magnesium improved to 2.5 P.o. magnesium prescribed for the patient Follow-up as an outpatient with PCP hx atrial flutter, patient NSR, on Eliquis hypertension, resume usual medications hx TIA New onset anemia, rule out GI bleed given NOAC use, patient refusing rectal exam Hyperglycemia rule out DM -- A1c pending plan of care discussed with patient in detail and at length all questions answered She is understanding, agreeable, comfortable with the plan of care Total Time Total Time Spent Total Time Spent (In Minutes): > 30 minutes Discharge Plan Discharge Items Patient Disposition: Home - Self-Care Reason For Visit: ALTERED MENTAL STATUS, HYPONATREMIA Discharge Diagnosis: Altered mental status Hyponatremia Activity: Resume your previous activity Activity Comment: Resume activity gradually as tolerated Lifting: Wait until after follow-up appointment Exercise/Sports: Wait until after follow-up appointment Driving/Machine Use: No driving until reevaluated and allowed by primary care physician Non-emergency contact: Primary Care Provider Call non-emergency contact if: you have any medication questions, your symptoms worsen, your pain is not controlled, your pain is worsening, your pain is unusual for you, your pain is concerning for you and you have a fever Follow-up/Referrals: PCP,NO [Primary Care Provider] - Diet: Heart Healthy Addtl Attending Provider Instructions: PLEASE REFER TO YOUR NEW MEDICATION LIST AND FOLLOW INSTRUCTIONS CAREFULLY. YOUR NEW MEDICATIONS INCLUDE: Folic acid supplement-for folic acid deficiency Magnesium supplement-for low magnesium levels No alcohol, other substances. PLEASE CALL YOUR PRIMARY CARE PHYSICIAN OR RETURN TO THE ER IF WITH WORSENING OF SYMPTOMS, INCLUDING Headache, dizziness, lightheadedness, weakness, shortness of breath, chest pain, abdominal pain, nausea vomiting. FOLLOW UP WITH PRIMARY CARE PHYSICIAN in 1 week. Pending Studies at Discharge: Yes Studies:: Repeat sodium and magnesium level on follow-up with your primary care physician this week Stand-Alone Forms: My [employer], Smoking Cessation Medications and DC Order Prescriptions: New folic acid 1 mg Tablet 1 mg PO QAM 30 Days Qty: 30 RF: 1 magnesium oxide 400 mg magnesium tablet 400 mg PO BID Qty: 14 RF: 0 Continued atorvastatin 40 mg tablet 40 mg PO DAILY RF: 0 atenolol 100 mg tablet 100 mg PO DAILY RF: 0 lisinopril 20 mg tablet 20 mg PO DAILY RF: 0 spironolactone 25 mg tablet 25 mg PO DAILY RF: 0 Xarelto 20 mg tablet 20 mg PO DAILY RF: 0 Discharge Orders: Discharge Order (Routine); Ordered 03/14/22 Ordered By: Rich Waldrop Admission Data Admit Date/Time: 03/14/22 01:29 Attending Provider: Rich Waldrop Admit Provider: Bam Huber Primary Care Provider: PCP,NO Other Providers: Bam Huber ; Huma Royal ; Isatu Gatica ; Elizabeth Prieto
--- NOTE | 2022-03-14 20:38 | Electrocardiogram Report ---
Test Reason : Blood Pressure : / mmHG Vent. Rate : 097 BPM Atrial Rate : 097 BPM P-R Int : 144 ms QRS Dur : 070 ms QT Int : 366 ms P-R-T Axes : 070 046 052 degrees QTc Int : 464 ms Normal sinus rhythm Possible Left atrial enlargement Low voltage QRS Borderline ECG No previous ECGs available Confirmed by Hola Fountain ([id number]) on 03/14/2022 8:38:45 PM Referred By: REFERRED SELF Confirmed By:Hola Fountain
[2022-03-15 08:14] LABS: Estimated Average Glucose 111 mg/dl; Hemoglobin A1C 5.5 % (4.5-5.6)
--- NOTE | 2022-03-15 08:37 | Psychiatric Consultation ---
Date of Consultation March 15, 2022 Impression / Recommendations Impression Patient discharged before she could be seen for psych consult. She was seen by psych liason RN who discussed findings with me by phone and who discussed with Dr. Waldrop. In summary patient presented with suspected substance-induced paranoia from marijuana use and then quickly cleared with observation in the ED and was deemed safe for discharge as no SI, no HI and no AH/VH and able to meet basic needs and no signs of ari or psychosis. Psych History Allergies Allergy/AdvReac Type Severity Reaction Status Date / Time Unable to Assess Allergy Verified 03/14/22 01:30 Home Medications Medication Instructions Recorded Confirmed Type atenolol 100 mg tablet 100 mg PO DAILY 03/14/22 03/14/22 History atorvastatin 40 mg tablet 40 mg PO DAILY 03/14/22 03/14/22 History folic acid 1 mg tablet 1 mg PO QAM 30 Days #30 tab 03/14/22 Rx lisinopril 20 mg tablet 20 mg PO DAILY 03/14/22 03/14/22 History magnesium oxide 400 mg PO BID #14 tab 03/14/22 Rx rivaroxaban 20 mg tablet (Xarelto) 20 mg PO DAILY 03/14/22 03/14/22 History spironolactone 25 mg tablet 25 mg PO DAILY 03/14/22 03/14/22 History Patient History Social History Preferred Language: French Communication Ability: Impaired 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
[2022-03-15] MEDS ORDERED: THIAMINE HCL 100 MG TAB PO SCH (09:00)
== END 2022-03-14 19:59 | disposition home or self-care (01) ==
LOC: ED 20:16 → EDINP 03-14 01:29 → INTOOBSV 03-14 01:29 → EDINP 03-14 02:25